=== PATIENT | male | born 2000 | race Caucasian/White ===

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

== ENCOUNTER 2022-08-10 19:11 | Emergency (ER) | payer BC, SELFPAY ==
[2022-08-10 19:12] VITALS: BP 147/80; PULSE 69; RESP 16; TEMP 36.7; O2SAT 100; BMI 26.9
--- NOTE | 2022-08-10 20:04 | EX.ED.VIS.EY ---
HPI History of Present Illness Chief Complaint: Eye Problem Informant: patient Narrative Narrative: Foreign body sensation left eye this evening. He wears daily contacts states however he sleeps in them. He had his contacts in when he felt symptoms. He removed this. He states he looked in the mirror noted a white spot. Mild discomfort. No blurry vision. No headaches. No nausea or vomiting. PFSH PFS Medical History Anxiety Depression Left tibial fracture Home Medications duloxetine 60 mg capsule,delayed release (Cymbalta) 60 mg PO DAILY 08/10/22 [History Last Taken Unknown] escitalopram oxalate 20 mg tablet (Lexapro) 20 mg PO DAILY 08/10/22 [History Last Taken Unknown] gabapentin 600 mg tablet 600 mg PO BID 08/10/22 [History Last Taken Unknown] olanzapine 7.5 mg tablet 7.5 mg PO DAILY 08/10/22 [History Last Taken Unknown] Allergy/AdvReac Type Severity Reaction Status Date / Time No Known Allergies Allergy Verified 08/10/22 19:13 Social History Smoking Status: Former smoker ROS ROS ED Constitutional Constitutional ED: Denies chills, fever(s) or sweats Eyes Eyes: Reports other Details: Left eye foreign body sensation ; Denies change in vision ENT ENT ED: Denies dysphagia or sore throat Cardiovascular Cardiovascular: Denies chest pain, leg edema, palpitations or racing heartbeat Respiratory/Chest Respiratory/Chest: Denies cough, dyspnea or dyspnea on exertion Gastrointestinal Gastrointestinal: Denies abdominal pain, diarrhea, nausea or vomiting Genitourinary Genitourinary ED: Denies dysuria, hematuria or urinary frequency Musculoskeletal Musculoskeletal: Denies back pain, extremity pain or neck pain Integumentary Denies rash or wounds Neurologic Neurologic: Denies headache(s), paresthesias or weakness EXAM Physical Exam Const Vital Signs: 08/10/22 19:12 Temperature 98.1 F Temperature Source Temporal Pulse Rate 69 Respiratory Rate 16 Blood Pressure 147/80 H Blood Pressure Mean 102 Pulse Ox 100 Oxygen Delivery Method Room Air Positive well nourished and well developed General Appearance ED: well developed and NAD HEENT Reports moist mucous membranes normocephalic and atraumatic Eyes PERRL, EOMs intact bilaterally and conjunctivae normal Eyes Narrative: Visual acuity 20/13 OD, 20/200 OS. Left eye everted no foreign bodies. Tetracaine instilled. Gross evaluation noted circular lesion below the 12:00 o'clock position of the cornea. Slit lamp confirms this. Fluorescein staining with no uptake's. General Eye ED: Yes normal appearance of both eyes Neck no lymphadenopathy and supple General: Negative for tenderness Chest Wall Chest: Negative for tenderness Resp normal respiratory effort and normal air movement Effort and Inspection: symmetric chest movement; Negative for respiratory distress Cardio regular rate, regular rhythm and no murmurs Peripheral Pulses: pulses 2+ throughout GI normal to inspection, nondistended, normoactive bowel sounds and non-tender Palpation: Negative for guarding or rebound tenderness present Back/Spine no CVA tenderness and no thoracic nor lumbar tenderness Extremity normal to inspection General Extremety ED: Negative for edema or tenderness General Extremity: Negative for edema Neuro oriented x3 and no sensory deficits noted Sensorium / Orientation: awake and alert Skin no rashes or lesions noted and no wounds MDM MDM MDM Narrative Medical decision making narrative: Patient history exam concerns for corneal ulcer. I discussed with food safety director on-call Dr. Tellez, will use Cipro drops every 2 hours. He will leave his contacts out of the left eye. He will follow-up on Friday discussed if worsening he will call the office number to get hold of them tomorrow as it is Friday for outpatient discussion. This was discussed with the patient understands agrees with plan. All questions were answered. Discharge Plan Triage Chief Complaint: Eye Problem ED Provider: Arjun Levy Dx/Rx/DC Orders Clinical Impression: Corneal ulcer of left eye, Acute left eye pain Instructions: ED Corneal Ulcer Prescriptions: No Action gabapentin 600 mg Tablet 600 mg PO BID olanzapine 7.5 mg Tablet 7.5 mg PO DAILY escitalopram oxalate [Lexapro] 20 mg Tablet 20 mg PO DAILY duloxetine [Cymbalta] 60 mg Capsule,Delayed Release(Dr/Ec) 60 mg PO DAILY Primary Care Provider: Care Physician,No Primary Referrals: Mehul Tellez MD [Med Staff - Active Staff] - 2 Days [facility] Doctor,Out of [Non-Staff] - Activity Restrictions/Additional Instructions: Use Cipro drops every 2 hours while awake to left eye. Do not put contacts back into your left thigh at this time. Call office first thing [place] morning to be seen. If worsening call the number to the office to get in contact with Dr. Tellez. Disposition Disposition: Home, Self Care Discharge Date/Time: 08/10/22 21:19
[2022-08-10] MEDS: Ciprofloxacin 0.3% 2.5ml Bottle 1 DRP LEFT EYE (21:13)
[2022-08-10] MEDS: Fluorescein 1 MG STRIP 1 STRIP OPHTHALMIC (21:13)
[2022-08-10] MEDS: Tetracaine 0.5% Ophthalmic Bottle 1 DRP OPHTHALMIC (21:13)
[2022-08-10 21:18] VITALS: BP 130/78; PULSE 62; RESP 16; O2SAT 99
== END 2022-08-10 21:19 | disposition home or self-care (01) ==
PROVIDERS: Emergency Provider Emergency Medicine; Visit Provider Emergency Medicine
DX: H16.002 Unspecified corneal ulcer, left eye (principal); H57.12 Ocular pain, left eye; F32.A Depression, unspecified; F41.9 Anxiety disorder, unspecified; Z87.891 Personal history of nicotine dependence; Z79.899 Other long term (current) drug therapy
CPT/HCPCS: 99282

== ENCOUNTER 2023-07-19 22:39 | Emergency (ER) | payer BC, SELFPAY ==
[2023-07-19 22:39] VITALS: BP 152/95; PULSE 100; RESP 16; TEMP 38.3; O2SAT 99; BMI 26.9
--- NOTE | 2023-07-19 22:55 | ED.VIS.GI ---
HPI HPI - GI History of Present Illness Chief Complaint: Abd Pain Narrative Narrative: 22-year-old male with 2 days of fever and diarrhea. Patient states he is not having nausea or vomiting. Patient states he does have abdominal cramping. He has had 2 COVID test which were both negative. He states he had antibiotics recently he believes over the summer for atelectasis from the urgent care. He is not actually sure if it was an antibiotic. Patient denies black or bloody stools. Patient states that one of his roommates also become ill with similar symptoms. [facility] and was told he might have appendicitis and told to come to the emergency room. Patient does state that at times he does have a little dysuria. He denies urethral discharge or drainage. He denies high risk sexual activity. No abdominal surgeries in the past. Patient also has associated symptoms of chills, myalgias, generalized malaise. PFSH PFSH Medical History Anxiety Depression Left tibial fracture Home Medications duloxetine 60 mg capsule,delayed release (Cymbalta) 60 mg PO DAILY 08/10/22 [History Last Taken Unknown] escitalopram oxalate 20 mg tablet (Lexapro) 20 mg PO DAILY 08/10/22 [History Last Taken Unknown] gabapentin 600 mg tablet 600 mg PO BID 08/10/22 [History Last Taken Unknown] olanzapine 7.5 mg tablet 10 mg PO DAILY 08/10/22 [History Last Taken Unknown] sertraline 100 mg tablet 200 mg PO DAILY 07/19/23 [History Last Taken Unknown] amoxicillin 875 mg-potassium clavulanate 125 mg tablet 1 tab PO BID #20 tabs 07/20/23 [Rx Last Taken Unknown] ondansetron 4 mg disintegrating tablet 4 mg PO Q8H PRN PRN Nausea #14 tabs 07/20/23 [Rx Last Taken Unknown] Allergy/AdvReac Type Severity Reaction Status Date / Time No Known Allergies Allergy Verified 07/19/23 22:41 Social History Smoking Status: Never smoker ROS ROS ED Constitutional Constitutional ED: Reports chills and fever(s); Denies sweats Eyes Eyes: Denies blurry vision or change in vision ENT ENT ED: Denies ear pain or sore throat Cardiovascular Cardiovascular: Denies chest pain, palpitations or racing heartbeat Respiratory/Chest Respiratory/Chest: Denies cough, dyspnea or sputum Gastrointestinal Gastrointestinal: Reports abdominal pain and diarrhea; Denies constipation, nausea or vomiting Genitourinary Genitourinary ED: Denies dysuria, hematuria or urinary frequency Musculoskeletal Musculoskeletal: Reports myalgias; Denies arthralgias or neck pain Integumentary Denies abscess, Abrasions or rash Neurologic Neurologic: Denies headache(s), paresthesias or weakness Psychiatric Psychiatric: Denies anxiety, depression, suicidal ideation or suicidal thoughts Endocrine Endocrinology: Denies polydipsia or polyuria EXAM Physical Exam Const Vital Signs: 07/19/23 22:39 Temperature 100.9 F H Temperature Source Temporal Pulse Rate 100 Respiratory Rate 16 Blood Pressure 152/95 H Blood Pressure Mean 114 Pulse Ox 99 Oxygen Delivery Method Room Air Positive well nourished General Appearance ED: NAD HEENT Reports moist mucous membranes normocephalic and atraumatic Eyes PERRL Neck no lymphadenopathy Resp normal respiratory effort Auscultation: Negative for rales or rhonchi Cardio regular rate and regular rhythm GI Palpation: tender RLQ; Negative for guarding or rigid Neuro CN's II-XII intact bilaterally and moves all extremities Sensorium / Orientation: alert Motor Exam: strength 5/5 throughout Psych mental status grossly normal and thought process normal Skin no wounds MDM MDM MDM Narrative Medical decision making narrative: Well-appearing 22-year-old male with a fever of 100.9 presenting with abdominal pain and diarrhea. He does have some mild tenderness in the right lower quadrant. No rebound or guarding. Differential includes, viral syndrome, C. difficile colitis, diverticulitis, colitis, pancreatitis, viral or bacterial gastroenteritis, dehydration, electrolyte abnormalities, appendicitis, UTI, pyelonephritis. CBC was obtained to assess white blood cell count,, hemoglobin, differential. CMP to assess liver function, renal function, electrolytes. Lipase to assess for pancreatitis. Urinalysis to assess for UTI or occult blood. Rapid COVID and influenza are obtained. Patient given Tylenol 1 g p.o. for fever. He is given a liter normal saline. He denies anything for pain or for nausea. CBC was obtained which shows a leukocytosis of 12.0. Hemoglobin hematocrit are stable. Platelets are normal. Creatinine is elevated today at 1.50 with no comparison. He was given a liter of normal saline already. It is unclear what his baseline is. He was given Tylenol for his fever. Urinalysis was negative. CT of the abdomen pelvis IV contrast shows thickening and inflammation of the cecum and ascending colon. Appendix is identified. Discussed case with Dr. Matamoros who did review the CT independently and does not believe she has appendicitis. He recommended Augmentin for home. He can follow-up with Dr. Matamoros in office. Return precautions were discussed at length. We discussed handwashing as he lives in a dorm with other roommates. One of the room and has diarrhea and I counseled them to the 2 rooms you are asymptomatic use 1 bathroom and they should use another. She did thoroughly clean her apartment. Patient was given a work note. He is given Zofran and Augmentin for home. Impression: 1. Colitis 2. Abdominal pain 3. Diarrhea Lab Data Labs: Laboratory Results - last 24 hr 07/19/23 07/19/23 22:58 23:38 WBC 12.0 H RBC 5.52 Hgb 15.4 Hct 46.6 MCV 84.4 MCH 27.9 MCHC 33.0 RDW Std Deviation 41.0 RDW Coeff of Jacinto 13.2 Plt Count 261 MPV 8.8 Immature Gran % (Auto) 0.400 Neut % (Auto) 81.2 H Lymph % (Auto) 10.8 L [place] % (Auto) 7.0 Eos % (Auto) 0.2 Baso % (Auto) 0.4 Absolute Neuts (auto) 9.8 H Absolute Lymphs (auto) 1.30 Nucleated RBC % 0 Sodium 133 L Potassium 3.9 Chloride 103 Carbon Dioxide 24.0 Anion Gap 6 BUN 17 Creatinine 1.50 H Estim Creat Clear Calc 81.11 Est GFR (MDRD) Af Amer 76 Est GFR (MDRD) Non-Af 63 BUN/Creatinine Ratio 11.3 Glucose 136 H Calcium 10.3 H Total Bilirubin 0.50 AST 17 ALT 25 Alkaline Phosphatase 75 Total Protein 7.3 Albumin 4.0 Globulin 3.3 Albumin/Globulin Ratio 1.2 Lipase 29 Urine Color Yellow Urine Clarity Clear Urine pH 6.0 Ur Specific [place] 1.015 Urine Protein 15 H Urine Glucose (UA) Normal Urine Ketones Negative Urine Occult Blood 10 H Urine Nitrite Negative Urine Bilirubin Negative Urine Urobilinogen Normal Ur Leukocyte Esterase Negative Urine RBC 0 SEEN Urine WBC 0 SEEN Ur Squamous Epith Cells 0 SEEN Urine Bacteria 0 SEEN Urine Mucus 0 SEEN Radiography Diagnostic Testing: Clinical Impression(s) from Imaging Studies Abdomen/Pelvis CT 07/19/23 23:35 IMPRESSION: Diffuse wall thickening and inflammation of the colon, but especially involving the cecum and ascending colon. This likely indicates an infectious or inflammatory colitis. Electronically Signed: Shahab Coon MD at 23:58 EDT , Discharge Plan Triage Chief Complaint: Abd Pain ED Provider: Solomon Naidu Dx/Rx/DC Orders Instructions: ED Diarrhea, Bacterial (Adult) Prescriptions: New ondansetron 4 mg tablet,disintegrating 4 mg PO Q8H PRN PRN (Reason: Nausea) Qty: 14 0RF amoxicillin-pot clavulanate 875-125 mg tablet 1 tab PO BID Qty: 20 0RF No Action gabapentin 600 mg Tablet 600 mg PO BID olanzapine 7.5 mg Tablet 10 mg PO DAILY escitalopram oxalate [Lexapro] 20 mg Tablet 20 mg PO DAILY duloxetine [Cymbalta] 60 mg Capsule,Delayed Release(Dr/Ec) 60 mg PO DAILY sertraline 100 mg tablet 200 mg PO DAILY Patient Comments: TAKE TWO TABLETS BY MOUTH EVERY DAY Stand Alone Forms: ED Work / School Excuse Primary Care Provider: Care Physician,No Primary Referrals: Carlito Matamoros MD [Med Staff - Active Staff] - 3-5 Days if not improving Care Physician,No Primary [Primary Care Provider] - Disposition Disposition: Home, Self Care
[2023-07-19 23:02] LABS: Absolute Neutrophil Count 9.8 X10^3/uL (2.0-7.7); Basophil# 0.05 X10^3/uL; Basophil% 0.4 % (0-1); Eosinophil# 0.03 X10^3/uL; Eosinophils% 0.2 % (0-5); Hematocrit 46.6 % (40-54); Hemoglobin 15.4 g/dL (13.0-16.5); Lymphocyte % 10.8 % (19-41); Mean Corpuscular Hgb 27.9 pg (27.0-32.0); Mean Corpuscular Volume 84.4 fL (80-94); Mean Platelet Vol. 8.8 fl (6.2-12.0); Monocyte# 0.84 X10^3/uL; NRBC Flagged by Analyzer 0 % (0-5); Neutrophil # 9.75 X10^3/uL (2.7-7.7); Neutrophil % 81.2 % (47-70); Platelet Count 261 K/mm3 (150-450); RBC Distribution Width CV 13.2 % (11.6-14.6); Red Blood Count 5.52 M/mm3 (4.6-6.2)
[2023-07-19] MEDS: 0.9% Normal Saline 1,000 ML 1000 ML IV (23:06)
[2023-07-19] MEDS: Acetaminophen 500 MG Tablet 1000 MG PO (23:06)
[2023-07-19 23:20] LABS: ALB/GLOB Ratio 1.2 RATIO (0.9-2.4); AST(SGOT) 17 U/L (15-37); Alanine Aminotransfer ALT/SGPT 25 U/L (16-61); Alkaline Phosphatase 75 U/L (45-117); Anion Gap 6 (5-15); BUN 17 mg/dL (7-18); BUN/Creat Ratio 11.3 RATIO (10-20); Calcium,Total 10.3 mg/dL (8.5-10.1); Chloride 103 mmol/L (98-107); EST Glomerular Filtration Rate 63 mL/min (>60); Est Glom Filt Rate - Afr Amer 76 mL/min (>60); Estimated Creatinine Clearance 81.11 ml/min; Globulin 3.3 g/dL (2.2-4.2); Glucose 136 mg/dL (74-106); Lipase 29 U/L (13-75); Potassium 3.9 mmol/L (3.5-5.1); Protein, Total 7.3 g/dL (6.4-8.2); Sodium Level 133 mmol/L (136-145)
--- NOTE | 2023-07-19 23:35 | CT_ITS ---
EXAM: CT ABDOMEN AND PELVIS WITH INTRAVENOUS CONTRAST CLINICAL INDICATION: rlq abdominal pain TECHNIQUE: Helically acquired images were obtained of the abdomen and pelvis with intravenous contrast. This CT exam was performed using one or more of the following dose reduction techniques: automated exposure control, adjustment of the mA and/or kV according to patient size, and/or use of iterative reconstruction technique. CONTRAST: IV 100mL [id number] RADIATION DOSE: CTDIvol = 10.63 mGy, DLP = 591.53 mGy-cm COMPARISON: No relevant prior studies available. FINDINGS: LOWER THORAX: Unremarkable. Lung bases are clear. No cardiomegaly. No significant pericardial effusion. ABDOMEN: LIVER: Unremarkable. Homogeneous. No focal mass. GALLBLADDER AND BILE DUCTS: Unremarkable. No calcified gallstones. No gallbladder distention or wall edema. No intra- or extrahepatic biliary ductal dilation. PANCREAS: Unremarkable. No focal cystic or solid mass. SPLEEN: Unremarkable. Normal size without focal cystic or solid mass. ADRENALS: Unremarkable. No nodules. KIDNEYS AND URETERS: Unremarkable. Normal renal size and position. No hydronephrosis. Normal enhancement of the renal parenchyma bilaterally. STOMACH AND BOWEL: Diffuse wall thickening and inflammation of the colon, but especially involving the cecum and ascending colon. No stomach or bowel distention. PELVIS: APPENDIX: The appendix is normal. BLADDER: Unremarkable. REPRODUCTIVE: Unremarkable as visualized. No mass. ABDOMEN and PELVIS: INTRAPERITONEAL SPACE: Tiny amount of free fluid in the pelvis. No free air. BONES/JOINTS: Unremarkable. No suspicious lytic or blastic abnormality. SOFT TISSUES: Unremarkable. No discrete abdominal or pelvic wall hernia. VASCULATURE: Unremarkable. Abdominal aorta is non-dilated. LYMPH NODES: Unremarkable. No enlarged lymph nodes. CT/Abdomen/Pelvis W IV Cont ONLY IMPRESSION: Diffuse wall thickening and inflammation of the colon, but especially involving the cecum and ascending colon. This likely indicates an infectious or inflammatory colitis. Electronically Signed: Shahab Coon MD at 23:58 EDT ,
[2023-07-19 23:42] LABS: Bacteria 0 SEEN /hpf (None Seen); Mucous, Urine 0 SEEN /hpf (<or=2+); Red Blood Cells-Urine 0 SEEN /hpf (0-5); Squamous Epithelial Cells - UA 0 SEEN /hpf (0-5); White Blood Cells 0 SEEN /hpf (0-5)
[2023-07-20 00:04] LABS: Color, Urine Yellow (Yellow); Glucose, Dipstick Normal (Normal); Ketone-Dipstick Negative (Negative); Leukocyte Esterase-Dipstick Negative /ul (Negative); Nitrite-Dipstick Negative (Negative); Occult Blood-Urine 10 /ul (Negative); Protein-Dipstick 15 mg/dl (Negative); Specific Gravity, Urine 1.015 (1.002-1.030); Urine Bilirubin Dipstick Negative (Negative); Urine Clarity Clear (Clear); Urine Urobilinogen Normal (Normal)
[2023-07-20] MEDS: Amox/Clavulanate 875 MG Tablet PO (00:36)
[2023-07-20 01:04] VITALS: BP 142/57; PULSE 74; RESP 18; O2SAT 96
--- NOTE | 2023-07-20 04:42 | ED.RN ---
lab called critical result of positive enteric pathogen for salmonella. Notified Dr Naidu, states that the augmentin will cover it. This RN called [facility] and updated on results. Nurse will notify director and will pass on to notify patient today.
== END 2023-07-20 01:22 | disposition home or self-care (01) ==
PROVIDERS: Emergency Provider Student in an Organized Health Care Education/Training Program; Visit Provider Student in an Organized Health Care Education/Training Program
DX: K52.9 Noninfective gastroenteritis and colitis, unspecified (principal); R10.9 Unspecified abdominal pain
CPT/HCPCS: 74177; 80053; 81001; 83630; 83690; 85025; 87177; 87209; 87428; 87493; 87506; 96360; 99284; J7030; Q9967; A4216